=== PATIENT | female | born 1975 | race African-American/Black ===

== ENCOUNTER 2022-11-14 07:35 | Day surgery (SDC) | payer MEDICAID ==
[2022-11-14] MEDS ORDERED: Lidocaine 1%/Sod Bicarbonate in NS 8.4% 1 ML Syringe IDERM PRN (07:51)
[2022-11-14] MEDS ORDERED: Sodium Chloride 0.9% 10 ML Syringe FLUSH PRN (07:51)
[2022-11-14] MEDS ORDERED: Lactated Ringers 1,000 ML IV SCH (08:00)
[2022-11-14] MEDS ORDERED: Midazolam 1 MG/ML 2 ML SDV ONE (08:31)
[2022-11-14] MEDS ORDERED: Lidocaine 1% 2 ML ONE (08:31)
[2022-11-14] MEDS ORDERED: fentaNYL 100 MCG/2 ML SDV ONE (08:31)
[2022-11-14] MEDS ORDERED: Propofol 200 MG/20 ML SDV ONE ×2 (08:31→09:01)
[2022-11-14] MEDS ORDERED: Sodium Chloride 0.9% 10 ML Syringe FLUSH SCH (09:00)
== END 2022-11-14 11:15 | disposition home or self-care (01) ==
LOC: JD.SDS 07:35
PROVIDERS: ATTEND Surgery
DX: Z12.11 Encounter for screening for malignant neoplasm of colon (principal); D50.9 Iron deficiency anemia, unspecified; K31.89 Other diseases of stomach and duodenum; K52.9 Noninfective gastroenteritis and colitis, unspecified; K63.3 Ulcer of intestine; K44.9 Diaphragmatic hernia without obstruction or gangrene; K64.9 Unspecified hemorrhoids; Z53.09 Procedure and treatment not carried out because of other contraindication; M19.90 Unspecified osteoarthritis, unspecified site; E66.01 Morbid (severe) obesity due to excess calories; M25.511 Pain in right shoulder; M25.512 Pain in left shoulder; G89.29 Other chronic pain; Z68.42 Body mass index [BMI] 45.0-49.9, adult
CPT/HCPCS: 43239; 45380; 81025; J2250; J2704; J3010; J7120; J3490